=== PATIENT | male | born 1975 | race Caucasian/White ===

== ENCOUNTER 2017-02-17 07:26 | Emergency (ER) | payer MEDICAID, OTHER ==
--- NOTE | 2017-02-17 08:09 | ERNOTE ---
Lower Extremity HPI - Narrative Date of Service: 02/17/17 - General Lower Extremities Pain: knee: right - Medial swelling and pain Time Seen by Provider: 02/17/17 07:59 Source: patient, family Exam Limitations: other - Intoxicated at the time of injury and does not remember what happened. - Immun/Allergies/Home Medications Immunizations: IMMUNIZATION HX Immunizations Up to Date Yes History of Influenza Vaccine No Hx Pneumococcal Vaccination No Allergies/Adverse Reactions: Allergies Allergy/AdvReac Type Severity Reaction Status Date / Time Penicillins Allergy Severe Swelling Verified 02/17/17 07:38 of Throat Home Medications: HOME MEDICATIONS NK [No Home Medication] 08/26/14 [Last Taken Unknown] - History of Present Illness Narrative: Was intoxicated last night. Thinks he fell but cannot recall. This AM his right knee was painful and swollen along the medial condyle of the femur. States it is throbbing and difficult to extend fully. Method of Injury: Reports: unknown Other Injuries: Reports: none - Denies Review of Systems - Review of Systems Constitutional: Present: no symptoms reported ENT: Present: no symptoms reported Respiratory: Present: no symptoms reported Cardiology: Present: no symptoms reported Gastrointestinal/Abdominal: Present: no symptoms reported - Patient's Past Medical History Patient History - Medical: No pertinent hx Patient History - Cardiac/Respiratory: No pertinent hx Patient History - Cancer: No Hx of Cancer Patient History - Surgical Procedures: Cholecystectomy Patient History - Other: None - Social History Living Situations: other Abuse History: No History of abuse Psych History: No pertinent hx Smoking Status: Current every day smoker Have you smoked in the past 12 months: Yes Do you dip or chew tobacco: No Alcohol Use: occasionally Drug Use: none - Immunizations Immunizations Up to Date: Yes Hx Pneumococcal Vaccination: No History of Influenza Vaccine: No Physical Exam - Physical Exam General Appearance: Present: wd/wn, alert Head Exam: Present: normal inspection Ears, Nose, Throat: Present: normal ENT inspection Neck: Present: normal inspection Respiratory: Present: no respiratory distress Cardiovascular/Chest: Present: regular rate, rhythm Gastrointestinal/Abdominal: Present: nontender, soft Extremity Exam: Present: joint swelling - Medial condyle of femur with swelling and tenderness to palpation. 120 degrees of extension. Neg patellar rock. No effusion appreciated. Guarding but no apparent laxity. ED Progress - Vital Signs Patient's Vital Signs:: I have reviewed the patient's vital signs. Vital Signs: Vital Signs 02/17/17 07:32 Temperature 37.6 C H Pulse Rate 100 Respiratory 17 Rate Blood Pressure 118/81 O2 Sat by Pulse 96 Oximetry - X-Ray X-Ray #1 X-Ray: knee - no fx - Progress/Reassessment Chief Complaint: Lower Extremity Pain/ Injury Plan - Plan Plan: Ice/elevation Ibuprofen alternating with tylenol Follow up with PCP Departure Clinical Impression: Contusion of knee, right - Departure Disposition: Home self-care Condition: Fair Instructions: Hematoma, [id number] Additional Instructions: Elevation x 48 hours Ice x 24 hrs. Use ibuprofen 600 mg alternating with tylenol 650 mg every 3 hours. Take pepcid 20 mg daily while taking ibuprofen Activity as pain allows Follow up with PCP
[2017-02-17 10:50] VITALS: BP 120/68
== END 2017-02-17 09:36 | disposition home or self-care (01) ==
LOC: ER 07:26
DX: S80.01XA Contusion of right knee, initial encounter (principal); W19.XXXA Unspecified fall, initial encounter; F17.200 Nicotine dependence, unspecified, uncomplicated